=== PATIENT | male | born 2000 | race Caucasian/White ===

== ENCOUNTER → 2023-12-11 09:31 | Outpatient (CLI) | payer OTHER, SELFPAY ==
[2023-12-11 19:57] LABS: BUN Creatinine Ratio 17.7 (6-22); Blood Urea Nitrogen 20 mg/dL (9-20); Calcium 9.5 mg/dL (8.4-10.2); Carbon Dioxide 28 mmol/L (22-32); Chloride 105 mmol/L (98-107); Cholesterol 220 mg/dL (140-199); Estimated Glomerular Filt Rate > 60 mL/min (>60); Glucose 87 mg/dL (70-100); HDL Cholesterol 42 mg/dL (40-60); HEMOLYSIS 31 (0-50); LDL Cholesterol Calculated 147 mg/dL (<100); Potassium 4.1 mmol/L (3.4-5.1); Sodium 139 mmol/L (137-145); Triglycerides 153 mg/dL (35-150)
[2023-12-11 19:58] LABS: Add Manual Diff / Slide Review NO; Basophils Absolute Auto 0 /uL (0-100); Basophils Percent Auto 0.9 % (0-2); Eosinophils Absolute Auto 300 /uL (0-450); Eosinophils Percent Auto 9.2 % (2-4); Hematocrit 42.7 % (41-53); Hemoglobin 14.2 g/dL (13.5-17.5); Lymphocytes Absolute Auto 1600 /uL (1100-4500); Lymphocytes Percent Auto 46.9 % (25-40); Mean Corpuscular HGB Conc 33.3 % (30-36); Mean Corpuscular Hemoglobin 25.9 PG (26-34); Mean Corpuscular Volume 77.9 fL (80-100); Monocytes Absolute Auto 300 /uL (0-900); Monocytes Percent Auto 9.2 % (3-14); Neutrophils Absolute Auto 1200 /uL (1500-7000); Neutrophils Percent Auto 33.8 % (50-75); Platelet Count 167 X10^3/uL (150-400); Red Blood Cell Count 5.49 X10^6/uL (4.5-5.9); Red Cell Distribution Width 13.8 % (11.6-14.8); White Blood Cell Count 3.4 X10^3/uL (4.5-11.0)
[2023-12-11 20:28] LABS: TSH w/ Reflex to FT4 4.78 uIU/mL (0.47-4.68)
[2023-12-11 20:54] LABS: Free T4, Direct Thyroxine 1.51 ng/dL (0.78-2.19)
== END ==
PROVIDERS: PCP Family Medicine; Visit Provider Family Medicine
DX: Z13.1 Encounter for screening for diabetes mellitus (principal); Z13.220 Encounter for screening for lipoid disorders; Z71.85 Encounter for immunization safety counseling; Z13.6 Encounter for screening for cardiovascular disorders; F32.A Depression, unspecified; R68.82 Decreased libido; J30.9 Allergic rhinitis, unspecified
CPT/HCPCS: 80048; 80061; 82785; 84402; 84403; 84439; 84443; 85025; 86003

== ENCOUNTER → 2023-12-13 14:12 | Outpatient (CLI) | payer OTHER, SELFPAY ==
--- NOTE | 2023-12-13 14:14 | DI.CT.S_ITS ---
PROCEDURE: CT SINUS SCREEN WO CON INDICATIONS: chronic sinusitis TECHNIQUE: Noncontrast 3.0 mm axial images acquired from the frontal sinuses to the mid-sella, with coronal and sagittal reformats. For radiation dose reduction, the following was used: automated exposure control, adjustment of mA and/or kV according to patient size. COMPARISON: None. FINDINGS: Image quality: Excellent. Maxillary Sinuses: No bony remodeling or destruction. Moderate mucous retention cyst at the inferior left maxillary sinus. Small mucous retention cyst at the inferior right maxillary sinus.. Ethmoid Air Cells: No bony remodeling or destruction. Sinuses are clear. Sphenoid Sinuses: No bony remodeling or destruction. Small layering debris within the posterior right sphenoid sinus.. Frontal Sinuses: No bony remodeling or destruction. Sinuses are clear. Ostiomeatal Complexes: Ostiomeatal complexes are patent but narrowed by bilateral Tho cells. Miscellaneous: Visualized intra-orbital contents are normal. No carolina bullosa or paradoxical turbinate curvature. Rightward nasal septal deviation with spurring. IMPRESSION: 1. Mucous retention cysts in the left greater than right maxillary sinuses. 2. Mild layering debris within the posterior right sphenoid sinus. Dictated by: Ricardo Madison M.D. on 12/15/2023 at 10:06 Approved by: Ricardo Madison M.D. on 12/15/2023 at 10:08
== END ==
PROVIDERS: PCP Family Medicine; Referring Provider Family Medicine; Visit Provider Family Medicine
DX: J32.9 Chronic sinusitis, unspecified (principal); J34.1 Cyst and mucocele of nose and nasal sinus; J34.2 Deviated nasal septum
CPT/HCPCS: 70486

== ENCOUNTER → 2024-06-30 09:30 | Outpatient (CLI) | payer OTHER, SELFPAY ==
[2024-06-30 20:17] LABS: Add Manual Diff / Slide Review NO; Basophils Absolute Auto 0 /uL (0-100); Basophils Percent Auto 0.7 % (0-2); Eosinophils Absolute Auto 300 /uL (0-450); Eosinophils Percent Auto 8.6 % (2-4); Hematocrit 43.5 % (41-53); Hemoglobin 14.4 g/dL (13.5-17.5); Lymphocytes Absolute Auto 1400 /uL (1100-4500); Mean Corpuscular HGB Conc 33.1 % (30-36); Mean Corpuscular Hemoglobin 26.2 PG (26-34); Monocytes Absolute Auto 300 /uL (0-900); Monocytes Percent Auto 7.9 % (3-14); Neutrophils Absolute Auto 1600 /uL (1500-7000); Neutrophils Percent Auto 43.8 % (50-75); Platelet Count 180 X10^3/uL (150-400); Red Blood Cell Count 5.51 X10^6/uL (4.5-5.9); Red Cell Distribution Width 13.2 % (11.6-14.8); White Blood Cell Count 3.7 X10^3/uL (4.5-11.0)
[2024-06-30 20:46] LABS: Prostate Specific Antigen Scrn 0.428 ng/mL (0.1-4.0)
[2024-06-30 20:48] LABS: TSH w/ Reflex to FT4 4.04 uIU/mL (0.47-4.68)
[2024-07-06 14:36] LABS: Percent Free Testosterone 4.03 % (1.50-4.20); Testosterone Free 15.92 ng/dL (5.00-21.00)
== END ==
PROVIDERS: PCP Family Medicine; Visit Provider Family Medicine
DX: Z12.5 Encounter for screening for malignant neoplasm of prostate (principal); Z51.81 Encounter for therapeutic drug level monitoring; E03.8 Other specified hypothyroidism; D70.9 Neutropenia, unspecified; R68.82 Decreased libido; Z79.890 Hormone replacement therapy
CPT/HCPCS: 84402; 84403; 84443; 85025; G0103

== ENCOUNTER → 2024-07-03 11:15 | Outpatient (CLI) | payer OTHER, SELFPAY | PROVIDERS: PCP Family Medicine; Visit Provider Family Medicine | DX: Z51.81 Encounter for therapeutic drug level monitoring (principal); E29.1 Testicular hypofunction; Z79.890 Hormone replacement therapy | CPT/HCPCS: 84402; 84403 ==

== ENCOUNTER → 2024-07-13 14:42 | Outpatient (CLI) | payer OTHER, SELFPAY | PROVIDERS: PCP Family Medicine; Visit Provider Family Medicine | DX: E29.1 Testicular hypofunction (principal); Z51.81 Encounter for therapeutic drug level monitoring; Z79.890 Hormone replacement therapy | CPT/HCPCS: 84402; 84403 ==